=== PATIENT | male | born 1985 | race Caucasian/White ===

== ENCOUNTER 2019-07-09 19:04 | Emergency (ER) | payer BC ==
[2019-07-09] MEDS ORDERED: methylPREDNISolone Sodium Succinate 125 MG/2 ML SDV IM ONE (19:24)
[2019-07-09] MEDS ORDERED: Ketorolac 60 MG/2 ML SDV IM ONE (19:25)
[2019-07-09] MEDS ORDERED: Albuterol/Ipratropium 3.0-0.5 MG/3 ML Neb Soln NEB ONE (19:25)
--- NOTE | 2019-07-09 19:34 | EDM.PDOC ---
ED HPI GENERAL MEDICAL PROBLEM - General Chief Complaint: Respiratory Problem Stated Complaint: FLU SYMPTOMS Time Seen by Provider: 07/09/19 19:09 Source of Information: Reports: Patient History Limitations: Reports: No Limitations - History of Present Illness INITIAL COMMENTS - FREE TEXT/NARRATIVE: HISTORY AND PHYSICAL: History of present illness: Patient is a 34-year-old male who presents to the ED today for concern of cough and low-grade fevers 5 days. Patient states his temperature at home has been around 99. Patient states he has not taken anything today for his cough for his fevers. Patient denies any health history or any other symptoms or concerns. Patient denies chills, chest pain, shortness of breath. Denies headache, neck stiff ness, change in vision, syncope, or near syncope. Denies nausea, vomiting , abdominal pain, diarrhea, constipation, or dysuria. Has not noted any blood in urine or stool. Patient has been eating and drinking appropriately. Review of systems: As per history of present illness and below otherwise all systems reviewed and negative. Past medical history: As per history of present illness and as reviewed below otherwise noncontributory. Surgical history: As per history of present illness and as reviewed below otherwise noncontributory. Social history: See social history for further information Family history: As per history of present illness and as reviewed below otherwise noncontributory. Physical exam: General: Patient is alert, oriented, and in no acute distress. Patient sitting comfortably on exam table. HEENT: Atraumatic, normocephalic, pupils equal and reactive bilaterally, negative for conjunctival pallor or scleral icterus, mucous membranes moist, TMs normal bilaterally, throat clear, neck supple, nontender, trachea midline. No drooling or trismus noted. No meningeal signs. No hot potato voice noted. Lungs: Clear to auscultation, breath sounds equal bilaterally, chest nontender. Wet cough illicited on exam. Heart: S1S2, regular rate and rhythm without overt murmur Abdomen: Soft, nondistended, nontender. Negative for masses or hepatosplenomegaly. Negative for costovertebral tenderness. Pelvis: Stable nontender. Genitourinary: Deferred. Rectal: Deferred. Skin: Intact, warm, dry. No lesions or rashes noted. Extremities: Atraumatic, negative for cords or calf pain. Neurovascular unremarkable. Neuro: Awake, alert, oriented. Cranial nerves II through XII unremarkable. Cerebellum unremarkable. Motor and sensory unremarkable throughout. Exam nonfocal. Notes: Dr. Cadet verbally involved in patient care. Discussed the importance for follow-up with a primary care provider. Voices understanding and is agreeable to plan of care. Denies any further questions or concerns at this time. Diagnostics: CBC, CMP, UA, chest x-ray, influenza Therapeutics: DuoNeb, Solu-Medrol, Toradol Prescription: Augmentin (has proair inhaler, and duonebs at home) Impression: Right middle lobe pneumonia Plan: 1. Take medication as prescribed. You can alternate ibuprofen and Tylenol as directed for pain and discomfort. 2. Follow-up with your primary care provider as discussed. Return to the ED as needed and as discussed. Definitive disposition and diagnosis as appropriate pending reevaluation and review of above. ribs Pain Score (Numeric/FACES): 7 - Related Data Allergies Allergy/AdvReac Type Severity Reaction Status Date / Time No Known Allergies Allergy Verified 07/09/19 19:15 Home Meds: Home Meds . [No Known Home Meds] 07/09/19 [History] Past Medical History - Past Health History Medical/Surgical History: Denies Medical/Surgical History Social & Family History - Family History Family Medical History: Noncontributory - Tobacco Use Smoking Status *Q: Never Smoker - Recreational Drug Use Recreational Drug Use: No ED ROS GENERAL - Review of Systems Review Of Systems: ROS reveals no pertinent complaints other than HPI. ED EXAM, GENERAL - Physical Exam Exam: See Below (See dictation) Course - Vital Signs Last Recorded V/S: Last Vital Signs Temp 97.8 F 07/09/19 20:54 Pulse 106 H 07/09/19 20:54 Resp 18 07/09/19 20:54 BP 127/91 H 07/09/19 20:54 Pulse Ox 93 L 07/09/19 20:54 - Orders/Labs/Meds Orders: Active Orders 24 hr Category Date Time Status RT Aerosol Therapy [RC] ASDIRECTED Care 07/09/19 19:25 Active Labs: Laboratory Tests 07/09/19 07/09/19 07/09/19 Range/Units 20:20 20:30 20:30 WBC 11.33 H (4.0-11.0) K/uL RBC 5.15 (4.50-5.90) M/uL Hgb 15.0 (13.0-17.0) g/dL Hct 44.2 (38.0-50.0) % MCV 85.8 (80.0-98.0) fL MCH 29.1 (27.0-32.0) pg MCHC 33.9 (31.0-37.0) g/dL RDW Std Deviation 40.3 (28.0-62.0) fl RDW Coeff of Reji 13 (11.0-15.0) % Plt Count 278 (150-400) K/uL MPV 10.20 (7.40-12.00) fL Neut % (Auto) 68.0 (48.0-80.0) % Lymph % (Auto) 17.3 (16.0-40.0) % [place] % (Auto) 13.0 (0.0-15.0) % Eos % (Auto) 1.3 (0.0-7.0) % Baso % (Auto) 0.4 (0.0-1.5) % Neut # (Auto) 7.7 H (1.4-5.7) K/uL Lymph # (Auto) 2.0 (0.6-2.4) K/uL [place] # (Auto) 1.5 H (0.0-0.8) K/uL Eos # (Auto) 0.2 (0.0-0.7) K/uL Baso # (Auto) 0.1 (0.0-0.1) K/uL Nucleated RBC % 0.0 /100WBC Nucleated RBCs # 0 K/uL Sodium 134 L (136-148) mmol/L Potassium 3.8 (3.5-5.1) mmol/L Chloride 99 (98-107) mmol/L Carbon Dioxide 23.4 (21.0-32.0) mmol/L BUN 12 (7.0-18.0) mg/dL Creatinine 1.0 (0.8-1.3) mg/dL Est Cr Clr Drug Dosing 106.46 mL/min Estimated GFR (MDRD) > 60.0 ml/min Glucose 103 (74-106) mg/dL Calcium 8.9 (8.5-10.1) mg/dL Total Bilirubin 0.8 (0.2-1.0) mg/dL AST 24 (15-37) IU/L ALT 39 (14-63) IU/L Alkaline Phosphatase 70 (46-116) U/L Total Protein 8.5 H (6.4-8.2) g/dL Albumin 4.0 (3.4-5.0) g/dL Globulin 4.5 H (2.6-4.0) g/dL Albumin/Globulin Ratio 0.9 (0.9-1.6) Urine Color YELLOW Urine Appearance CLEAR Urine pH 5.5 (5.0-8.0) Ur Specific [place] 1.010 (1.001-1.035) Urine Protein NEGATIVE (NEGATIVE) mg/dL Urine Glucose (UA) NEGATIVE (NEGATIVE) mg/dL Urine Ketones NEGATIVE (NEGATIVE) mg/dL Urine Occult Blood TRACE-LYSED H (NEGATIVE) Urine Nitrite NEGATIVE (NEGATIVE) Urine Bilirubin NEGATIVE (NEGATIVE) Urine Urobilinogen 0.2 (<2.0) EU/dL Ur Leukocyte Esterase NEGATIVE (NEGATIVE) Urine RBC 0-2 (0-2/HPF) Urine WBC 0-1 (0-5/HPF) Ur Epithelial Cells NOT SEEN (NONE-FEW) Urine Bacteria RARE (NEGATIVE) Meds: Medications Discontinued Medications Generic Name Dose Route Start Last Admin Trade Name Freq PRN Reason Stop Dose Admin Albuterol/Ipratropium 3 ml 07/09/19 19:25 07/09/19 19:37 Duoneb 3.0-0.5 Mg/3 Ml NEB 07/09/19 19:26 3 ml ONETIME ONE Administration Ketorolac Tromethamine 60 mg 07/09/19 19:25 07/09/19 19:40 Toradol IM 07/09/19 19:26 60 mg ONETIME ONE Administration Methylprednisolone Sodium Succinate 125 mg 07/09/19 19:24 07/09/19 19:33 Solu-Medrol IM 07/09/19 19:25 125 mg ONETIME ONE Administration Departure - Departure Time of Disposition: 21:23 Disposition: Home, Self-Care 01 Clinical Impression: Right middle lobe pneumonia Qualifiers: Pneumonia type: due to unspecified organism Qualified Code(s): J18.1 - Lobar pneumonia, unspecified organism - Discharge Information Instructions: Community-Acquired Pneumonia, Adult, [id number] Referrals: PCP,None [Primary Care Provider] - Forms: ED Department Discharge Additional Instructions: The following information is given to patients seen in the emergency department who are being discharged to home. This information is to outline your options for follow-up care. We provide all patients seen in our emergency department with a follow-up referral. The need for follow-up, as well as the timing and circumstances, are variable depending upon the specifics of your emergency department visit. If you don't have a primary care physician on staff, we will provide you with a referral. We always advise you to contact your personal physician following an emergency department visit to inform them of the circumstance of the visit and for follow-up with them and/or the need for any referrals to a consulting specialist. The emergency department will also refer you to a specialist when appropriate. This referral assures that you have the opportunity for follow-up care with a specialist. All of these measure are taken in an effort to provide you with optimal care, which includes your follow-up. Under all circumstances we always encourage you to contact your private physician who remains a resource for coordinating your care. When calling for follow-up care, please make the office aware that this follow-up is from your recent emergency room visit. If for any reason you are refused follow-up, please contact the [facility] Emergency Department at and asked to speak to the emergency department charge nurse. [facility] [address] [place], [place] [id number] [place] [address] 1. Take medication as prescribed. You can alternate ibuprofen and Tylenol as directed for pain and discomfort. 2. Follow-up with your primary care provider as discussed. Return to the ED as needed and as discussed. - My Orders Last 24 Hours: My Active Orders 07/09/19 19:25 RT Aerosol Therapy [RC] ASDIRECTED - Assessment/Plan Last 24 Hours: My Active Orders 07/09/19 19:25 RT Aerosol Therapy [RC] ASDIRECTED
--- NOTE | 2019-07-09 20:30 | CR ---
HISTORY: Cough. TECHNIQUE: Two-view chest. COMPARISON: None. FINDINGS: Low lung volumes. Airspace consolidation in the right middle lobe. No pleural effusion or pneumothorax. Pulmonary vasculature and cardiomediastinal silhouette are within normal limits. IMPRESSION: Right middle lobe pneumonia. Follow-up after treatment is recommended to ensure resolution. Dictated by Gunner Burdick MD @ Jul 09 2019 8:26PM Signed by Dr. Gunner Burdick @ Jul 09 2019 8:28PM
[2019-07-09 21:00] LABS: BLOOD UREA NITROGEN,BUN 12 mg/dL (7.0-18.0); CARBON DIOXIDE,CO2 23.4 mmol/L (21.0-32.0); CHLORIDE,CL 99 mmol/L (98-107); GLUCOSE RANDOM 103 mg/dL (74-106); POTASSIUM,K 3.8 mmol/L (3.5-5.1); SODIUM,NA 134 mmol/L (136-148)
== END 2019-07-09 21:55 | disposition home or self-care (01) ==
LOC: MW.ED 19:04
DX: J18.1 Lobar pneumonia, unspecified organism (principal)
CPT/HCPCS: 36415; 71046; 80053; 81001; 85025; 87804; 96372; 99284; J1885; J2930; 99283; J7620-GY

== ENCOUNTER 2021-03-05 19:04 | Emergency (ER) | payer BC ==
--- NOTE | 2021-03-05 19:27 | EDM.PDOC ---
ED HPI GENERAL MEDICAL PROBLEM - General Chief Complaint: Genitourinary Problem Stated Complaint: PAIN IN KIDNEYS Time Seen by Provider: 03/05/21 19:16 - History of Present Illness INITIAL COMMENTS - FREE TEXT/NARRATIVE: History of present illness: [] This young man reports he has left flank pain that now radiates to both sides and down to his testicles. Its been going on for a week. He has exacerbations it may last as long as 2 hours and that may cause his pain to reach a level of 7 out of 10 severity. He is a stoic individual that works out in the heat and also works out in the gym heavily. Does not matter what he is doing posterior pole exercises or back exercises the exercises do not make it worse but after his workout the pain is worse. He has urinary frequency in addition. He seems to put out more urine volume than usual. When he has the pain at its most severe level he is diaphoretic whether he is inside outside or working out. When it is at a severe level he is also nauseated but has not vomited. He has no diarrhea. There is no change in appetite. He does not have fever and chills. He enjoys excellent health. Review of systems: As per history of present illness and below otherwise all systems reviewed and negative. Past medical history: He had a small hernia when he was a child but it never needed repair and the doctors have subsequently told him that there is no evidence of any continuation or exacerbation. As per history of present illness and as reviewed below otherwise noncontributory. Surgical history: As per history of present illness and as reviewed below otherwise noncon tributory. Social history: No reported history of drug or alcohol abuse. Family history: As per history of present illness and as reviewed below otherwise noncontributory. Physical exam: Constitutional - well developed, well-nourished and in no acute distress HEENT - normocephalic, no evidence of trauma - external nose and mouth normal - no mass in neck and no JVD - mucosae moist EYES - full EOM, PERRL, no icterus - no evidence of inflammation, injection, or drainage Respiratory - no respiratory distress, equal bilateral expansion, lungs clear to auscultation and no abnormal lung sounds Cardiovascular - Regular Rhythm with S1 and S2 appreciated and no murmur, gallop or rub. GI - abdomen soft without distension or organomegaly - normal bowel sounds - no guard or rebound normal external genitalia with no tenderness discoloration and no mass when he does a cough or Valsalva Musculoskeletal straight leg raise normal no gross deformity of long bones or joints - no tenderness, swelling or edema Neurologic - Alert and oriented times four - CN II-XII grossly intact - motor sensory and coordination symmetrically normal Psychiatric - appropriate mood and affect with normal thought content Hematologic - No petechiae or purpura - mucosa appropriate color and sclera not pale - normal nail bed color and refill Integument - no rash or evidence of trauma - normal turgor Diagnostics: [] Therapeutics: [] Impression: [] Plan: [] Definitive disposition and diagnosis as appropriate pending reevaluation and review of above. Bilateral Flank Pain Score (Numeric/FACES): 5 - Related Data Allergies Allergy/AdvReac Type Severity Reaction Status Date / Time No Known Allergies Allergy Verified 03/05/21 19:14 Home Meds: Home Meds . [No Known Home Meds] 07/09/19 [History] Past Medical History - Past Health History Medical/Surgical History: Denies Medical/Surgical History - Infectious Disease History Infectious Disease History: Reports: Chicken Pox Social & Family History - Family History Family Medical History: No Pertinent Family History - Tobacco Use Tobacco Use Status *Q: Never Tobacco User - Caffeine Use Caffeine Use: Reports: Coffee, Energy Drinks - Recreational Drug Use Recreational Drug Use: No ED ROS GENERAL - Review of Systems Review Of Systems: Comprehensive ROS is negative, except as noted in HPI. ED EXAM, GENERAL - Physical Exam Exam: See Below Free Text/Narrative:: My physical exam is in the HPI Course - Vital Signs Text/Narrative:: 1955 hrs.-urine specific gravity was revealed to be 1.030. IV started and hydration initiated. Electrolytes sent to the lab. Last Recorded V/S: Last Vital Signs Temp 36.3 C 03/05/21 19:15 Pulse 68 03/05/21 20:15 Resp 18 03/05/21 20:15 BP 128/73 03/05/21 20:15 Pulse Ox 98 03/05/21 20:15 - Orders/Labs/Meds Labs: Laboratory Tests 03/05/21 03/05/21 Range/Units 19:24 19:50 Creatine Kinase 201 (26-308) U/L Urine Color YELLOW Urine Appearance CLEAR Urine pH 6.0 (5.0-8.0) Ur Specific [place] >= 1.030 (1.001-1.035) Urine Protein NEGATIVE (NEGATIVE) mg/dL Urine Glucose (UA) NEGATIVE (NEGATIVE) mg/dL Urine Ketones NEGATIVE (NEGATIVE) mg/dL Urine Occult Blood TRACE-INTACT H (NEGATIVE) Urine Nitrite NEGATIVE (NEGATIVE) Urine Bilirubin NEGATIVE (NEGATIVE) Urine Urobilinogen 0.2 (<2.0) EU/dL Ur Leukocyte Esterase NEGATIVE (NEGATIVE) Urine RBC 2-4 (0-2/HPF) Urine WBC 0-2 (0-5/HPF) Ur Epithelial Cells OCCASIONAL (NONE-FEW) Urine Bacteria FEW (NEGATIVE) Urine Mucus LIGHT (NONE-MOD) Meds: Medications Discontinued Medications Generic Name Dose Route Start Last Admin Trade Name Laurita PRN Reason Stop Dose Admin Lactated Ringer's 1,000 mls @ 1,000 mls/hr 03/05/21 19:54 03/05/21 20:14 Ringers, Lactated IV 03/05/21 20:53 1,000 mls/hr .BOLUS ONE Administration Departure - Departure Time of Disposition: 21:01 Disposition: Home, Self-Care 01 Condition: Good Clinical Impression: Myalgia, Dehydration - Discharge Information Instructions: Dehydration, Adult, [id number], Muscle Pain, Adult Referrals: PCP,None [Primary Care Provider] - Forms: ED Department Discharge Additional Instructions: 21 1 2 hours the patient's CPK was normal. His urine showed specific gravity increase. The CT showed a stone in the right kidney but it was not moving into the ureter. It is possible he passed a kidney stone but there were only 2-4 red cells in his urine. I believe he has muscle pain from overuse associated with also dehydration and probably not replenishing electrolytes. [facility] - Primary Care [address] [place] [address] [id number] [address] [id number] The following information is given to patients seen in the emergency department who are being discharged to home. This information is to outline your options for follow-up care. We provide all patients seen in our emergency department with a follow-up referral. The need for follow-up, as well as the timing and circumstances, are variable depending upon the specifics of your emergency department visit. If you don't have a primary care physician on staff, we will provide you with a referral. We always advise you to contact your personal physician following an emergency department visit to inform them of the circumstance of the visit and for follow-up with them and/or the need for any referrals to a consulting specialist. The emergency department will also refer you to a specialist when appropriate. This referral assures that you have the opportunity for follow-up care with a specialist. All of these measure are taken in an effort to provide you with optimal care, which includes your follow-up. Under all circumstances we always encourage you to contact your private physician who remains a resource for coordinating your care. When calling for follow-up care, please make the office aware that this follow-up is from your recent emergency room visit. If for any reason you are refused follow-up, please contact the [facility] Emergency Department at and asked to speak to the emergency department charge nurse. Sepsis Event Note (ED) - Evaluation Sepsis Screening Result: No Definite Risk - Focused Exam Vital Signs: Vital Signs Temp Pulse Resp BP Pulse Ox 03/05/21 20:15 68 18 128/73 98 03/05/21 19:15 36.3 C 66 17 119/80 96
[2021-03-05] MEDS ORDERED: Lactated Ringers 1,000 ML IV ONE (19:54)
--- NOTE | 2021-03-05 20:51 | CT ---
INDICATION: Flank pain TECHNIQUE: CT abdomen and pelvis without contrast. COMPARISON: None available FINDINGS: Lower chest: Unremarkable. Liver: Unremarkable. Spleen: Unremarkable. Pancreas: Unremarkable. Gallbladder and bile ducts: Possible gallbladder sludge. Adrenal glands: Unremarkable. Kidneys: No hydronephrosis. A 1 mm nonobstructive right renal calcification. No discrete ureteral calcifications. GI tract: No bowel obstruction. Normal appendix. No significant pericolonic changes. Mild wall thickening and luminal narrowing in a short segment of the mid descending colon, and mild mid to distal sigmoid colon wall thickening, presumably related to peristalsis/underdistention. Vascular structures: Unremarkable. Lymph nodes: Unremarkable. Miscellaneous: No significant free fluid or free air. Pelvic Organs: Mild bladder wall prominence which could be related to under distention. A mildly enlarged prostate. Bones: Unremarkable for age. IMPRESSION: No obstructive uropathy. A punctate nonobstructive right renal calcification. No discrete ureteral calcifications. Mild bladder wall thickening could be related to underdistention or mild cystitis. A mildly enlarged prostate. Please note that all CT scans at this facility use dose modulation, iterative reconstruction, and/or weight-based dosing when appropriate to reduce radiation dose to as low as reasonably achievable. Dictated by Mckinley Beach MD @ 03/05/2021 8:49:[address] Mckinley Beach @ Mar 05 2021 8:49PM
== END 2021-03-05 21:13 | disposition home or self-care (01) ==
LOC: MW.ED 19:04
DX: M79.10 Myalgia, unspecified site (principal); E86.0 Dehydration
CPT/HCPCS: 36415; 74176; 81001; 82550; 99284; J7120

== ENCOUNTER 2023-03-25 22:03 | Emergency (ER) | payer BC ==
[2023-03-26] MEDS ORDERED: Ketorolac 30 MG/ML SDV IVPUSH ONE (00:56)
[2023-03-26] MEDS ORDERED: Sodium Chloride 0.9% 1,000 ML IV ONE (00:56)
[2023-03-26 01:17] LABS: BASOPHILS PERCENT AUTO 0.2 % (0.0-1.5); EOSINOPHILS PERCENT AUTO 0.1 % (0.0-7.0); HEMATOCRIT 45.2 % (38.0-50.0); HEMOGLOBIN 15.7 g/dL (13.0-17.0); LYMPHOCYTES ABSOLUTE AUTO 0.9 K/uL (0.6-2.4); LYMPHOCYTES PERCENT AUTO 6.8 % (16.0-40.0); MEAN CORPUSCULAR HEMOGLOBIN 30.2 pg (27.0-32.0); MEAN CORPUSCULAR HGB CONC 34.7 g/dL (31.0-37.0); MEAN CORPUSCULAR VOLUME 86.9 fL (80.0-98.0); MONOCYTES ABSOLUTE AUTO 0.7 K/uL (0.0-0.8); MONOCYTES PERCENT AUTO 5.2 % (0.0-15.0); NEUTROPHILS ABSOLUTE AUTO 11.8 K/uL (1.4-5.7); NEUTROPHILS PERCENT AUTO 87.7 % (48.0-80.0); NRBC ABSOLUTE 0 K/uL; PLATELET COUNT,PLT 298 K/uL (150-400); WHITE BLOOD CELL COUNT,WBC 13.39 K/uL (4.0-11.0)
[2023-03-26 01:40] LABS: ALBUMIN 3.8 g/dL (3.4-5.0); BILIRUBIN TOTAL 0.7 mg/dL (0.2-1.0); CALCIUM 8.9 mg/dL (8.5-10.1); CARBON DIOXIDE,CO2 27.6 mmol/L (21.0-32.0); CREATININE 1.1 mg/dL (0.8-1.3); EST CRCL DRUG DOSING (CG) 91.05 mL/min; PROTEIN TOTAL,TP 7.5 g/dL (6.4-8.2)
[2023-03-26 02:40] LABS: BILIRUBIN,URINE NEGATIVE (NEGATIVE); COLOR,URINE YELLOW; GLUCOSE,URINE NEGATIVE (NEGATIVE); KETONES,URINE NEGATIVE (NEGATIVE); LEUKOCYTE ESTERASE,URINE NEGATIVE (NEGATIVE); NITRITE,URINE NEGATIVE (NEGATIVE); OCCULT BLOOD,URINE LARGE (NEGATIVE); PROTEIN,URINE NEGATIVE (NEGATIVE); UROBILINOGEN,URINE 0.2 EU/dL (<2.0)
[2023-03-26 02:52] LABS: APPEARANCE,URINE SLT CLOUDY
[2023-03-26 02:53] LABS: BACTERIA,URINE FEW (NEGATIVE); EPITHELIAL CELLS,URINE FEW (NONE-FEW); RBC,URINE 15-20 (0-2/HPF)
== END 2023-03-26 03:49 | disposition home or self-care (01) ==
LOC: MW.ED 22:03
DX: N20.0 Calculus of kidney (principal)
CPT/HCPCS: 36415; 74176; 80053; 81001; 83690; 85025; 96361; 96374; 99284; J1885; J7030